=== PATIENT | male | born 1935 | race Caucasian/White ===

== ENCOUNTER 2016-06-05 05:18 | Emergency (ER) | payer MEDICARE, OTHER ==
[2016-06-05] MEDS ORDERED: LACTATED RINGERS 1,000 ML ONE (06:02)
[2016-06-05] MEDS ORDERED: ONDANSETRON 4 MG/2ML 2 ML VIAL ONE (06:02)
[2016-06-05 06:07] LABS: ABSOLUTE NEUTROPHIL COUNT 18.3 K/mm3 (1.8-7.7); BASO % 0.2 % (0.2-1.0); EOS # 0.3 (0.0-0.5); EOS % 1.6 % (0.9-2.9); HEMATOCRIT 40.9 % (32.0-52.0); HEMOGLOBIN 13.7 gm/l (14.0-18.0); IMM NEUT # 0.1 K/mm3 (0-0.2); IMM NEUT% 0.5 % (0-1); LYMPH # 0.5 (1.0-4.8); LYMPH % 2.5 % (15-45); MEAN CELL VOLUME 92.7 fl (80.0-94.0); MEAN CORPUSCULAR HEMOGLOBIN 31.1 pg (27.0-31.0); MEAN CORPUSCULAR HGB CONC 33.5 g/dl (33.0-37.0); MEAN PLATELET VOLUME 9.9 fl (7.4-10.4); MONO # 1.4 (0.0-0.8); MONO % 6.6 % (4-12); NEUT % 88.6 % (43-75); PLATELET COUNT 186 K/mm3 (130-400); RED CELL DISTRIBUTION WIDTH 12.5 % (11.5-14.5)
[2016-06-05 06:29] LABS: ALB/GLOB RATIO 1.6 (>1.0); ALBUMIN 4.1 gm/dL (3.5-5.7); CALCIUM 9.4 mg/dL (8.6-10.3)
[2016-06-05 06:47] LABS: BAND 4 % (0-10); BASOPHIL 0 % (0-1); EOSINOPHIL 2 % (1-3); LYMPHOCYTE 3 % (15-45); MONOCYTE 11 % (4-12); NEUTROPHILS 80 % (43-75); PLATELET ESTIMATE NORMAL (NORMAL); TOTAL CELLS COUNTED 100
[2016-06-05 07:39] LABS: URINE BILIRUBIN NEGATIVE (NEGATIVE); URINE BLOOD NEGATIVE (NEGATIVE); URINE GLUCOSE (UA) NEGATIVE (NEGATIVE); URINE LEUKOCYTE ESTERASE NEGATIVE (NEGATIVE); URINE NITRITE NEGATIVE (NEGATIVE); URINE PROTEIN NEGATIVE (NEGATIVE); URINE UROBILINOGEN NORMAL (0-1 mg/dl)
[2016-06-05 07:41] LABS: URINE APPEARANCE CLEAR; URINE COLOR YELLOW
== END 2016-06-05 08:35 | disposition home or self-care (01) ==
LOC: ED 05:18
DX: R11.2 Nausea with vomiting, unspecified (principal); R19.7 Diarrhea, unspecified; I12.9 Hypertensive chronic kidney disease with stage 1 through stage 4 chronic kidney disease, or unspecified chronic kidney disease; N18.3 Chronic kidney disease, stage 3 (moderate)
CPT/HCPCS: 85025; 80053; 81003; 99284; 96374; 96361; 93005; 99283; J2405; J7120